=== PATIENT | female | born 1990 | race African-American/Black ===

== ENCOUNTER 2019-12-06 18:11 | Emergency (ER) | payer SELFPAY ==
[~2019-12-06] VITALS: Ht 172.7 cm; Wt 63.5 kg
[2019-12-06 19:07] VITALS: BP 125/80
== END 2019-12-06 19:21 | disposition home or self-care (01) ==
LOC: ER 18:19
DX: M67.431 Ganglion, right wrist (principal); Z60.2 Problems related to living alone